=== PATIENT | female | born 1945 | race Two or more races ===

== ENCOUNTER 2019-03-15 08:50 | Day surgery (SDC) | payer MEDICARE, MEDICAID ==
[2019-03-15] VITALS (7 sets, daily range): BP systolic 135–163; BP diastolic 73–84
[~2019-03-15] VITALS: Ht 162.6 cm; Wt 99.8 kg
[~2019-03-15 08:50] MED LIST: BENICAR20 MG ORAL; FARXIGA5 MG PO; LR 1000ml 1,000 ML IVLG SCH; NOVOLOG100 UNIT/3 SUBQ; SYNTHROID112 MCG ORAL; VICTOZA 2-0.6 MG/0.1 SUBQ
--- NOTE | 2019-03-15 09:10 | Short Stay Surgery H&P ---
History of Present Illness History of Present Illness Chief Complaint Abdominal pains/GERDs/screening colon HPI Jessica Aguayo is a 74 year old female who was admitted on for Abdominal Pain/ Gerd/screening colonoscopy Patient History Allergies: Coded Allergies: IODINE (Verified Allergy, Severe, 07/29/16) HIVES AND ITCHING AND REDNESS LATEX (Verified Allergy, Severe, 07/29/16) ITCHING AND REDNESS SULFAMETHOXAZOLE (Verified Adverse Reaction, Severe, 07/29/16) SEVERE VOMITING AND STOMACH PAIN TRIMETHOPRIM (Verified Adverse Reaction, Severe, 07/29/16) SEVERE VOMITING AND STOMACH PAIN PAST MEDICAL HISTORY: (1) Hypothyroidism (2) Diabetes (3) Hypertension (4) Acute arthritis Medication History Scheduled Dapagliflozin Propanediol (Farxiga), 5 MG PO DA, (Reported) Insulin Aspart* (Novolog*), 0 SUBQ SLIDING, (Reported) Levothyroxine Sodium* (Synthroid*), 112 MCG ORAL DAILY, (Reported) Liraglutide (Victoza 2-Andres), 1.8 MG SUBQ DAILY, (Reported) Olmesartan Medoxomil (Benicar), 20 MG ORAL DAILY, (Reported) Review of Systems Cardiovascular: Reports: hypertension Respiratory: Reports: no symptoms Skeletal: Reports: osteroarthritis Gastrointestinal: Reports: gastro esophageal reflux disease Genitourinary: Reports: no symptoms Neurologic: Reports: no symptoms Endocrine: Reports: diabetes - type 2, thyroid Hematologic: Reports: no symptoms Physical Exam Skin: normal HENT: normal Heart: normal Lungs: normal Abdomen: abnormal Extremities: normal Plan Plan of Care Upper and lower Gi endoscopy Preop Interventions None. Summary of Findings See the reports Attestation Are the patient's medical conditions optimized for surgery? Attestation Response: yes Hugh Grande MD March 15, 2019 09:09
--- NOTE | 2019-03-15 09:11 | Pre-Procedure Note/Attestation ---
Pre-Procedure Note/Attestation Complete Prior to Procedure Planned Procedure: left Procedure Narrative: Examination of the upper and lower GI tract via endoscopy Indications for Procedure Pre-Operative Diagnosis: R/O gastritis/peptic ulcer and colon polyps/tumor Attestation I attest that I discussed the nature of the procedure; its benefits; risks and complications; and alternatives (and the risks and benefits of such alternatives ), prior to the procedure, with the patient (or the patient's legal representative phlebotomy services). I attest that, if there was a reasonable possibility of needing a blood transfusion, the patient (or the patient's legal representative phlebotomy services) was given the [facility] standardized written summary, pursuant to the [employer] Blood Safety Act ([place] Health and Safety Code # 1645, as amended). I attest that I re-evaluated the patient just prior to the surgery and that there has been no change in the patient's H&P, except as documented below: Hugh Grande MD March 15, 2019 09:10
[2019-03-15] MEDS ORDERED: Propofol 200mg/20ml IV ONE (09:30)
[2019-03-15] MEDS ORDERED: FARXIGA5 MG PO (09:34)
--- NOTE | 2019-03-15 09:50 | Anethesia Preoperative Eval ---
Anesthesia Pre-op PMH/ROS General Date of Evaluation: March 15, 2019 Time of Evaluation: 09:00 ASA Score: ASA 2 Mallampati Score Class I : Soft palate, uvula, fauces, pillars visible Class II: Soft palate, uvula, fauces visible Class III: Soft palate, base of uvula visible Class IV: Only hard plate visible Mallampati Classification: Class II Allergies: Coded Allergies: IODINE (Verified Allergy, Severe, 07/29/16) HIVES AND ITCHING AND REDNESS LATEX (Verified Allergy, Severe, 07/29/16) ITCHING AND REDNESS SULFAMETHOXAZOLE (Verified Adverse Reaction, Severe, 07/29/16) SEVERE VOMITING AND STOMACH PAIN TRIMETHOPRIM (Verified Adverse Reaction, Severe, 07/29/16) SEVERE VOMITING AND STOMACH PAIN Patient NPO?: Yes Anesthesia Pre-op Phys. Exam Physician Exam Last Vital Signs Date Time Temp Pulse Resp B/P (MAP) Pulse Ox O2 Delivery O2 Flow Rate FiO2 03/15/19 09:39 Room Air 03/15/19 09:25 97.7 70 18 135/75 96 Airway Exam Mallampati Score: Class II Pat Adan MD March 15, 2019 09:50
--- NOTE | 2019-03-15 10:25 | Endoscopy Procedure Note ---
Endoscopy Procedure Note General Indication for Procedure: Abdominal pains/GEDs/screening colonoscopy Procedures Performed: EGD - Mild gastritis, otherwise normal upper GI endoscopy , biopsy obtained from gastric body., colonoscopy - Extremely difficult procedure due high redunancy of colon and very poor colon clean up only findings consistant with internal hemorrhoids of mild degree. Specimen: yes Anesthesia Anesthesiologist: Dr. Adan Anesthesia: moderate sedation Inserted Devices Implant(s) used?: No Quality Quality of Bowel Preparation: Poor Did scope reach the cecum?: Yes Was there any complications?: No GI Core Measures 50 yrs or older w/o bx or poly: Yes 10yrs. F/U not recommended: Yes If not recommended, why?: 10 yrs. F/U needed: Yes <3yrs. since last colonoscopy: No Med reason:<3 yrs.: Last colonoscopy >= to 3yrs: Yes Hugh Grande MD March 15, 2019 10:25
--- NOTE | 2019-03-15 10:26 | Discharge Instructions ---
Discharge Instructions Discharge Instructions Follow up with: see the docotor in office after 2 weeks For Congestive Heart Failure Reminder Report to your physician any weight gain of 5 pounds or more in one week. Hugh Grande MD March 15, 2019 10:26
--- NOTE | 2019-03-15 10:30 | Immediate Post-Op Evaluation ---
Immediate Post-Op Evalulation Immediate Post-Op Evalulation Procedure: egd colonoscopy Date of Evaluation: March 15, 2019 Time of Evaluation: 10:30 Nausea: No Vomiting: No Pat Adan MD March 15, 2019 10:30
--- NOTE | 2019-03-15 17:00 | Procedure Note ---
DATE OF PROCEDURE: 03/15/2019 SURGEON: Hugh Grande M.D. PROCEDURE: Total colonoscopy. PREOPERATIVE DIAGNOSIS: Screening colonoscopy. POSTOPERATIVE DIAGNOSIS: Extremely poor colonic preparation and high redundancy of the left colon making the examination difficult. However, there was evidence of minimal internal hemorrhoids and the total colonoscopy up to the base of the cecum was negative for other pathologies. MEDICATION USED: Per Dr. Adan, anesthesiologist. INSTRUMENT: GIF Olympus video colonoscope. DESCRIPTION OF PROCEDURE: The patient after arriving endoscopy unit, was told about risks and benefits of the procedure which she accepted and signed informed consent. She was then put on the left lateral decubitus position. After adequate IV sedation, the scope was gently passed through the anal area which revealed evidence of hemorrhoidal tags and the retroflexion maneuver, which was applied in the rectum revealed evidence of minimal internal hemorrhoids of no great significance. At this time, the scope was gradually passed through the rectum and the rectosigmoid area which revealed evidence of significant amount of liquidy stool which made the examination significantly difficult, particularly that the left colon was quite redundant. At this time, significant amount of time was spent to pass through the areas with maneuvering of the scope and the scope was also changed to pediatric one. Finally the scope could reach towards the splenic flexure, transverse colon, and the right colon to the base of the cecum. All these areas revealed to be normal except significant amount of fluid in the stool making the examination constantly difficult to go through these areas. Finally reaching to the base of the cecum within 7 minutes the scope was gradually pulled out and the procedure was terminated. As I mentioned, the colon cleanup was significantly poor. The patient tolerated the procedure well and left the endoscopy room in a good condition. Hugh Grande M.D. DR: Juana JOB#: [id number] CC:
--- NOTE | 2019-03-15 17:15 | Operative Note - Dictated ---
DATE OF OPERATION: 03/15/2019 SURGEON: Hugh Grande M.D. PROCEDURE: Esophagogastroduodenoscopy with biopsy. PREOPERATIVE DIAGNOSES: Abdominal pain, history of chronic gastroesophageal reflux, rule out peptic ulcer disease. POSTOPERATIVE DIAGNOSIS: Evidence of very mild generalized gastritis, otherwise completely normal upper GI endoscopy. Biopsy was done from gastric body. MEDICATION USED: Per Dr. Adan. INSTRUMENT: GIF Olympus upper GI video endoscope. DESCRIPTION OF PROCEDURE: The patient after arriving in the endoscopy unit, was told about risks and benefits of the procedure, which she accepted and signed informed consent. At this time, she was put on the left lateral decubitus position. After adequate IV sedation, the scope was gently passed through the cricopharyngeal area, was lodged into the upper esophagus and gradually advanced towards gastroesophageal junction. The entire length of the esophagus looked normal without any evidence of pathology such as a stricture, ulcers, exudate process, etc. GE junction also looked normal without any evidence of Lopez's or hiatal hernia. Scope at this time was guided into the stomach. Gastric cavity was distended with insufflation of air and gradually the areas of the fundus and the body and the antrum were examined, which revealed evidence of minimal inflammatory process generally consistent with mild generalized gastritis, but there was no ulcers, tumors, polyps, bleeding sites, etc. A random biopsy from gastric body obtained and a retroflexion maneuver was also applied. The area of the gastroesophageal junction was examined in a closer fashion, which did not reveal any other pathology. Finally, the scope was gradually advanced towards the body, antrum, pylorus, first and second portion of duodenum and there was no other pathology found at this point. Finally, the scope was pulled out and the procedure was terminated. The patient tolerated the procedure well. Hugh Grande M.D. DR: FANNIE JOB#: [id number] CC:
== END 2019-03-15 12:00 | disposition home or self-care (01) ==
LOC: GAS 08:50
DX: Z12.11 Encounter for screening for malignant neoplasm of colon (principal); K29.50 Unspecified chronic gastritis without bleeding; K64.8 Other hemorrhoids; K21.9 Gastro-esophageal reflux disease without esophagitis; E03.9 Hypothyroidism, unspecified; E11.9 Type 2 diabetes mellitus without complications; I10 Essential (primary) hypertension; M19.90 Unspecified osteoarthritis, unspecified site; Z79.899 Other long term (current) drug therapy
CPT/HCPCS: 43239; 82962; G0121; J2704; 94003; 94150